=== PATIENT | male | born 2005 | race Caucasian/White ===

== ENCOUNTER 2025-04-09 11:22 | Outpatient (CLI) | payer BC | END 2025-04-09 11:23 | disposition home or self-care (01) | LOC: ULT 11:22 | PROVIDERS: ATTEND Internal Medicine Gastroenterology | DX: K50.90 Crohn's disease, unspecified, without complications (principal); R79.89 Other specified abnormal findings of blood chemistry; R16.1 Splenomegaly, not elsewhere classified | CPT/HCPCS: 76705 ==